=== PATIENT | male | born 1945 | race Hispanic/Latino ===

== ENCOUNTER 2018-11-19 05:28 | Day surgery (SDC) | payer MEDICARE ==
[~2018-11-19] VITALS: Ht 165.1 cm; Wt 81.6 kg
[~2018-11-19 05:28] MED LIST: ALLO100T PO; AMLO5TAB9 PO; ASPI-1197 PO; ATOR20TA65 PO; CARV25TA PO; CHOL100044 PO; FERS325 PO; FINA5TAB41 PO; FOLI1TAB85 PO; GABA-529 PO; INSU3INS3 SQ; RIVA15TA PO; SODIUM BICARB PO; TAMS0.4C32 PO; TORS10TA18 PO; VITAMIN D2
[2018-11-19] MEDS ORDERED: SODIUM CHLORIDE 0.9% 1000ML 1,000 ML IV ONE (05:51)
[2018-11-19] MEDS ORDERED: LIDOCAINE HCL-MPF 2% 5ML VIAL ONE (06:37)
[2018-11-19] MEDS ORDERED: PROPOFOL 1000 MG/100 ML 100 ML IV ONE (06:37)
[2018-11-19 06:50] VITALS: BP 124/67
[2018-11-19 09:10] VITALS: BP 116/68
[2018-11-19 09:15] VITALS: BP 123/70
[2018-11-19 09:30] VITALS: BP 104/71
== END 2018-11-19 09:36 | disposition home or self-care (01) ==
LOC: ENDO 05:28 → DAH 05:28 → ENDO 09:36
PROVIDERS: ATTEND Internal Medicine
DX: Z09 Encounter for follow-up examination after completed treatment for conditions other than malignant neoplasm (principal); D12.0 Benign neoplasm of cecum; K63.5 Polyp of colon; K52.89 Other specified noninfective gastroenteritis and colitis; K57.30 Diverticulosis of large intestine without perforation or abscess without bleeding; K64.0 First degree hemorrhoids; I12.9 Hypertensive chronic kidney disease with stage 1 through stage 4 chronic kidney disease, or unspecified chronic kidney disease; N18.9 Chronic kidney disease, unspecified; E11.22 Type 2 diabetes mellitus with diabetic chronic kidney disease; I25.10 Atherosclerotic heart disease of native coronary artery without angina pectoris; E78.2 Mixed hyperlipidemia; Z95.0 Presence of cardiac pacemaker; Z90.49 Acquired absence of other specified parts of digestive tract; Z98.890 Other specified postprocedural states; Z89.429 Acquired absence of other toe(s), unspecified side; Z86.010 Personal history of colon polyps; Z79.01 Long term (current) use of anticoagulants; Z79.899 Other long term (current) drug therapy; Z79.4 Long term (current) use of insulin; Z82.49 Family history of ischemic heart disease and other diseases of the circulatory system; Z83.3 Family history of diabetes mellitus
CPT/HCPCS: 45380; 82948 ×2; 88305; J2704; J3490; J7030